=== PATIENT | female | born 1985 | race Caucasian/White ===

== ENCOUNTER 2016-09-15 17:45 | Emergency (ER) | payer OTHER | END 2016-09-15 18:55 | disposition home or self-care (01) | LOC: ER1 17:45 | DX: L02.412 Cutaneous abscess of left axilla (principal); F17.210 Nicotine dependence, cigarettes, uncomplicated | CPT/HCPCS: 10061; 87070; 87077; 87186; 87205; 99283 ==

== ENCOUNTER 2016-10-28 14:22 | Emergency (ER) | payer OTHER ==
[2016-10-28 15:42] LABS: RED BLOOD COUNT 4.3 M/UL (4.00-5.10)
[2016-10-28 16:05] LABS: BUN/CREATININE RATIO 22 (0-10)
== END 2016-10-28 17:40 | disposition home or self-care (01) ==
LOC: ER1 14:22
PROVIDERS: Physician Assistant
DX: J40 Bronchitis, not specified as acute or chronic (principal); F17.210 Nicotine dependence, cigarettes, uncomplicated
CPT/HCPCS: 36415; 71020; 80053; 82550; 82553; 83874; 84484; 84703; 85025; 93005; 99285; J7030